=== PATIENT | female | born 1985 | race Caucasian/White ===

== ENCOUNTER 2018-05-06 02:43 | Observation (INO) ==
--- NOTE | 2018-05-06 03:50 | XR ---
EXAM DATE: 05/06/2018 3:47 AM EST AGE/SEX: 33 years / Female INDICATIONS: Chest pain, shortness of breath. CLINICAL DATA: This is the patient's initial encounter. Patient reports that signs and symptoms have been present for 1 day and indicates a pain score of 6/10. MEDICAL/SURGICAL HISTORY: . Smoker. None. COMPARISON: No prior exams available for comparison. FINDINGS: A single AP view of the chest demonstrates the lungs to be symmetrically aerated without evidence of mass, infiltrate or effusion. The cardiomediastinal contours are unremarkable. Osseous structures a re intact. CONCLUSION: Negative examination. Electronically signed by: Grady Nelson MD 05/06/2018 3:49 AM EST
[2018-05-06 03:53] LABS: Baso % (Auto) 0.3 % (0.0-2.0); Eos # (Auto) 0.2 th/mm3 (0.0-0.4); Eos % (Auto) 1.9 % (0.0-4.0); Hematocrit 40.8 % (35.0-46.0); Hemoglobin 14.7 gm/dL (11.6-15.3); Lymph # (Auto) 3.3 th/mm3 (1.0-4.8); Lymph % (Auto) 30.2 % (9.0-44.0); Mean Corpuscular Hemoglobin 33.1 pg (27.0-34.0); Mean Corpuscular Volume 91.9 fL (80.0-100.0); Mean Platelet Volume 8.8 fL (7.0-11.0); Mono # (Auto) 0.6 th/mm3 (0.0-0.9); Mono % (Auto) 5.1 % (0.0-8.0); Neut # (Auto) 6.9 th/mm3 (1.8-7.7); Neut % (Auto) 62.5 % (16.0-70.0); Platelet Count 219 th/mm3 (150-450); Red Blood Count 4.44 mil/mm3 (4.00-5.30); Red Cell Distribution Width 12.6 % (11.6-17.2)
[2018-05-06 04:16] LABS: Alanine Aminotransferase 20 U/L (10-53); Albumin 3.9 g/dL (3.4-5.0); Anion Gap 8 meq/L (5-15); Aspartate Aminotransferase 14 U/L (15-37); Blood Urea Nitrogen 15 mg/dL (7-18); Calcium 8.5 mg/dL (8.5-10.1); Carbon Dioxide 24.6 meq/L (21.0-32.0); Chloride 105 meq/L (98-107); Glomerular Filtration Rate 77 mL/min (>89); Glucose,Random 148 mg/dL (74-106); Potassium 3.4 meq/L (3.5-5.1); Sodium 138 meq/L (136-145)
[2018-05-06 04:20] LABS: Alkaline Phosphatase 72 U/L (45-117); Total Protein 7.5 g/dL (6.4-8.2)
--- NOTE | 2018-05-06 04:29 | ED ---
HPI General Chief Complaint: Chest Pain Stated Complaint: cardiac complaint Time Seen by Provider: 05/06/18 03:06 Source: patient Mode of arrival: ambulatory Limitations: no limitations History of Present Illness HPI narrative: 33-year-old female came to the emergency room with history of substernal chest pain that radiates to the back. Patient describes the pain as a discomfort and feels like a bowling ball sitting on her chest. Patient says that the pain started at 10 PM last night. She took 2 regular strength aspirin and then came to the emergency room. By the time she came here the pain was gone. She had a similar pain 5 days back. No history of syncopal episode. Patient says that she had some associated shortness of breath. Patient is a smoker and is on oral contraceptives. No history of coronary artery disease. Her mother had 3 heart attacks. Patient was hypertensive upon arrival. Currently her pain is 1 out of 10. Related Data Home Medications Medication Instructions Recorded Confirmed norgestimate-ethinyl estradiol 1 tab PO DAILY 05/06/18 05/06/18 [Sprintec (28)] Allergies Allergy/AdvReac Type Severity Reaction Status Date / Time No Known Allergies Allergy Verified 05/06/18 02:45 Review of Systems ROS: all other systems reviewed are negative [facility] Medical History Medical History Patient denies medical problems (Acute) Surgical History Surgical History No history of previous surgery (Acute) Social History Social History Substance History: No History of Abuse Second Hand Smoke Exposure: Yes Smoking Status: Current every day smoker Tobacco Type: Cigarettes Packs Per Day: 1 Cigarettes Per Day: 20.0 How Often Do You Have a Drink Containing Alcohol: 2 to 3 times a week Hx Recent Travel: No Recent Travel in [facility] within the Last 8 Weeks: No Recent Out of Country Travel within the Last 8 Weeks: No Immunization History Tetanus Immunization: Unsure Exam Narrative Exam Narrative: GENERAL: Awake, alert, obese, anxious, moderate distress SKIN: Focused skin assessment warm/dry. HEAD: Atraumatic. Normocephalic. EYES: Pupils equal and round. No scleral icterus. No injection or drainage. ENT: No nasal bleeding or discharge. Mucous membranes pink and moist. NECK: Trachea midline. No JVD. CARDIOVASCULAR: Regular rate and rhythm. No murmur appreciated. RESPIRATORY: No accessory muscle use. Clear to auscultation. Breath sounds equal bilaterally. GASTROINTESTINAL: Abdomen soft, non-tender, nondistended. Hepatic and splenic margins not palpable. MUSCULOSKELETAL: No obvious deformities. No clubbing. No cyanosis. No edema. NEUROLOGICAL: Awake and alert. No obvious cranial nerve deficits. Motor grossly within normal limits. Normal speech. PSYCHIATRIC: Appropriate mood and affect; insight and judgment normal. Course Initial Documented Vital Signs Temperature 98.4 F 05/06/18 02:46 Pulse Rate 93 H 05/06/18 02:46 Respiratory Rate 16 05/06/18 02:46 Blood Pressure 186/86 H 05/06/18 02:46 Pulse Oximetry 98 05/06/18 02:46 Last Documented Vital Signs Temperature 98.5 F 05/06/18 08:00 Pulse Rate 75 05/06/18 08:00 Respiratory Rate 16 05/06/18 08:00 Blood Pressure 116/72 05/06/18 08:00 Pulse Oximetry 98 05/06/18 08:00 Medical Decision Making MDM Narrative Medical decision making narrative: 2:20 AM blood test results are back and within acceptable limits including the troponin and d-dimer. I discussed with the patient about her certain risk factors and possibility of ACS which would require to be ruled out and she is acceptable with the plan of observation at the chest pain center. Medical Screen Exam Complete: Yes Emergency Medical Condition: Yes Lab Data Result diagrams: 05/06/18 03:34 05/06/18 03:34 Lab Results 05/06/18 05/06/18 05/06/18 Range/Units 03:34 03:34 03:34 WBC 11.0 (4.0-11.0) th/mm3 RBC 4.44 (4.00-5.30) mil/mm3 Hgb 14.7 (11.6-15.3) gm/dL Hct 40.8 (35.0-46.0) % MCV 91.9 (80.0-100.0) fL MCH 33.1 (27.0-34.0) pg MCHC 36.0 (32.0-36.0) % RDW 12.6 (11.6-17.2) % Plt Count 219 (150-450) th/mm3 MPV 8.8 (7.0-11.0) fL Prelim Diff (Auto) Slide review pending Neut % (Auto) 62.5 (16.0-70.0) % Lymph % (Auto) 30.2 (9.0-44.0) % [place] % (Auto) 5.1 (0.0-8.0) % Eos % (Auto) 1.9 (0.0-4.0) % Baso % (Auto) 0.3 (0.0-2.0) % Neut # (Auto) 6.9 (1.8-7.7) th/mm3 Lymph # (Auto) 3.3 (1.0-4.8) th/mm3 [place] # (Auto) 0.6 (0.0-0.9) th/mm3 Eos # (Auto) 0.2 (0.0-0.4) th/mm3 Baso # (Auto) 0.0 (0.0-0.2) th/mm3 WBC Differential . Diff Scan Auto diff confirmed Differential Comment . D-Dimer Quant (PE/DVT) 0.42 (0.00-0.50) mg/L FEU Sodium 138 (136-145) meq/L Potassium 3.4 L (3.5-5.1) meq/L Chloride 105 (98-107) meq/L Carbon Dioxide 24.6 (21.0-32.0) meq/L Anion Gap 8 (5-15) meq/L BUN 15 (7-18) mg/dL Creatinine 0.86 (0.50-1.00) mg/dL Estimated GFR 77 L (>89) mL/min Random Glucose 148 H (74-106) mg/dL Calcium 8.5 (8.5-10.1) mg/dL Total Bilirubin 0.3 (0.2-1.0) mg/dL AST 14 L (15-37) U/L ALT 20 (10-53) U/L Alkaline Phosphatase 72 (45-117) U/L Total Creatine Kinase (26-192) U/L Troponin I Less than 0.02 L (0.02-0.05) ng/mL Total Protein 7.5 (6.4-8.2) g/dL Albumin 3.9 (3.4-5.0) g/dL TSH (0.358-3.740) uIU/mL Beta HCG, Qual (0-5) mIU/mL 05/06/18 05/06/18 05/06/18 Range/Units 04:58 07:50 07:50 WBC (4.0-11.0) th/mm3 RBC (4.00-5.30) mil/mm3 Hgb (11.6-15.3) gm/dL Hct (35.0-46.0) % MCV (80.0-100.0) fL MCH (27.0-34.0) pg MCHC (32.0-36.0) % RDW (11.6-17.2) % Plt Count (150-450) th/mm3 MPV (7.0-11.0) fL Prelim Diff (Auto) Neut % (Auto) (16.0-70.0) % Lymph % (Auto) (9.0-44.0) % [place] % (Auto) (0.0-8.0) % Eos % (Auto) (0.0-4.0) % Baso % (Auto) (0.0-2.0) % Neut # (Auto) (1.8-7.7) th/mm3 Lymph # (Auto) (1.0-4.8) th/mm3 [place] # (Auto) (0.0-0.9) th/mm3 Eos # (Auto) (0.0-0.4) th/mm3 Baso # (Auto) (0.0-0.2) th/mm3 WBC Differential Diff Scan Differential Comment D-Dimer Quant (PE/DVT) (0.00-0.50) mg/L FEU Sodium (136-145) meq/L Potassium (3.5-5.1) meq/L Chloride (98-107) meq/L Carbon Dioxide (21.0-32.0) meq/L Anion Gap (5-15) meq/L BUN (7-18) mg/dL Creatinine (0.50-1.00) mg/dL Estimated GFR (>89) mL/min Random Glucose (74-106) mg/dL Calcium (8.5-10.1) mg/dL Total Bilirubin (0.2-1.0) mg/dL AST (15-37) U/L ALT (10-53) U/L Alkaline Phosphatase (45-117) U/L Total Creatine Kinase 101 87 (26-192) U/L Troponin I Less than 0.02 L Less than 0.02 L (0.02-0.05) ng/mL Total Protein (6.4-8.2) g/dL Albumin (3.4-5.0) g/dL TSH 2.640 (0.358-3.740) uIU/mL Beta HCG, Qual Less than 1.0 (0-5) mIU/mL 05/06/18 Range/Units 07:50 WBC (4.0-11.0) th/mm3 RBC (4.00-5.30) mil/mm3 Hgb (11.6-15.3) gm/dL Hct (35.0-46.0) % MCV (80.0-100.0) fL MCH (27.0-34.0) pg MCHC (32.0-36.0) % RDW (11.6-17.2) % Plt Count (150-450) th/mm3 MPV (7.0-11.0) fL Prelim Diff (Auto) Neut % (Auto) (16.0-70.0) % Lymph % (Auto) (9.0-44.0) % [place] % (Auto) (0.0-8.0) % Eos % (Auto) (0.0-4.0) % Baso % (Auto) (0.0-2.0) % Neut # (Auto) (1.8-7.7) th/mm3 Lymph # (Auto) (1.0-4.8) th/mm3 [place] # (Auto) (0.0-0.9) th/mm3 Eos # (Auto) (0.0-0.4) th/mm3 Baso # (Auto) (0.0-0.2) th/mm3 WBC Differential Diff Scan Differential Comment D-Dimer Quant (PE/DVT) (0.00-0.50) mg/L FEU Sodium (136-145) meq/L Potassium (3.5-5.1) meq/L Chloride (98-107) meq/L Carbon Dioxide (21.0-32.0) meq/L Anion Gap (5-15) meq/L BUN (7-18) mg/dL Creatinine (0.50-1.00) mg/dL Estimated GFR (>89) mL/min Random Glucose (74-106) mg/dL Calcium (8.5-10.1) mg/dL Total Bilirubin (0.2-1.0) mg/dL AST (15-37) U/L ALT (10-53) U/L Alkaline Phosphatase (45-117) U/L Total Creatine Kinase (26-192) U/L Troponin I (0.02-0.05) ng/mL Total Protein (6.4-8.2) g/dL Albumin (3.4-5.0) g/dL TSH Cancelled (0.358-3.740) uIU/mL Beta HCG, Qual (0-5) mIU/mL Imaging Data Radiologist's impression: Chest X-Ray 05/06/18 03:31 CONCLUSION: Negative examination. ECG Data Attestation: I personally reviewed and interpreted this ECG as follows: Interpretation: Twelve-lead EKG was reviewed by me. Normal sinus rhythm, normal axis, nonspecific ST-T wave changes. Heart rate of 77 bpm Discharge Plan Discharge Disposition Patient Disposition: 32 Still Patient Discharge Condition Condition: Good Discharge Order Discharge Orders: Discharge Order (Routine); Ordered 05/06/18 Ordered By: Viridiana Frost Discharge Details Anticipated Discharge Date: 05/06/18 Physicians Team ED Provider: Denise Lomax Primary Care Provider: Primary Care Jose,Elizabeth Attending Provider: Joaquin Barber ED Status: Left Department Discharge Information Discharge Date/Time: 05/06/18 05:24
[2018-05-06 05:36] LABS: Creatine Kinase 101 U/L (26-192)
[2018-05-06 06:05] VITALS: RESP 16
[2018-05-06] MEDS ORDERED: Acetaminophen 500 MG Tablet PO PRN (07:25)
[2018-05-06 08:18] VITALS: BP 116/72; TEMP 98.5; O2SAT 98
[2018-05-06 08:21] VITALS: PULSE 75
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
[2018-05-06 09:07] LABS: Creatine Kinase 87 U/L (26-192)
--- NOTE | 2018-05-06 12:10 | TR ---
Date Performed: 05/06/2018 Time Performed: 11:16:11 DOCTOR: Joaquin Barber DRUG LIST: CLINICAL HISTORY: CHEST PAIN REASON FOR TEST: Chest pain REASON FOR ENDING: OBSERVATION: CONCLUSION: Ki protocol completed. Stopped sec to reaching target heart rate and leg fatigue. Max HR Achieved=86.0% Maximum BF=311/82 Total Exercise Time=10:35 Maximum AK=337. No reprod chest pa in. No ectopy. No st t segment changes. Normal bp response. Great exercise tolerance. Recovery quick and unremarkable. COMMENTS: Conclusion: Normal treadmill exercise. No evidence of ischemia.
--- NOTE | 2018-05-06 16:05 | ECG ---
Date Performed: 05/06/2018 Time Performed: 08:11:05 PTAGE: 33 years EKG: Sinus rhythm ARM LEADS REVERSED ATYPICAL ECG PREVIOUS TRACING : 05/06/2018 03.00 Compared to previous tracing, limb leads are reversed. DOCTOR: Joaquin Barber Interpretating Date/Time 05/06/2018 16:04:31
--- NOTE | 2018-05-06 16:06 | ECG ---
Date Performed: 05/06/2018 Time Performed: 03:00:14 PTAGE: 33 years EKG: Sinus rhythm NORMAL ECG NO PREVIOUS TRACING DOCTOR: Joaquin Barber Interpretating Date/Time 05/06/2018 16:05:52
--- NOTE | 2018-05-07 20:07 | ECG ---
Date Performed: 05/06/2018 Time Performed: 08:52:47 PTAGE: 33 years EKG: Sinus rhythm NORMAL ECG PREVIOUS TRACING : 05/06/2018 08.11 Compared to previous tracing,limb lead reversal is correcte dMelissa DOCTOR: Joaquin Barber Interpretating Date/Time 05/07/2018 20:06:21
== END 2018-05-06 13:01 | disposition home or self-care (01) ==
LOC: NEPC 02:43 → NEDA 02:43 → NEPFCDU 05:13
DX: E66.9 Obesity, unspecified; F17.210 Nicotine dependence, cigarettes, uncomplicated; R07.89 Other chest pain; R06.02 Shortness of breath